=== PATIENT | female | born 1985 | race Caucasian/White ===

== ENCOUNTER 2016-08-24 05:58 | Day surgery (SDC) | payer OTHER ==
[2016-08-22 11:10] LABS: ANION GAP 11.2 (8-16); CALCIUM 8.6 mg/dL (8.5-10.1); CREATININE 0.8 mg/dL (0.6-1.3); POTASSIUM 4.2 mmol/L (3.5-5.1)
[2016-08-22 11:15] LABS: ALBUMIN 3.3 g/dL (3.4-5.0); TOTAL BILIRUBIN 0.1 mg/dL (0.0-1.0); TOTAL PROTEIN, SERUM 7.7 g/dL (6.4-8.2)
[2016-08-22 11:47] LABS: BASOPHILS # (AUTO) 0.3 K/uL (0.00-0.22); BASOPHILS % (AUTO) 4.9 % (0.0-2.0); EOSINOPHILS # (AUTO) 0.1 K/uL (0-0.4); EOSINOPHILS % (AUTO) 1.8 % (0.0-4.0); HEMATOCRIT 37.7 % (36-48); HEMOGLOBIN 12.8 g/dL (12.0-16.0); LYMPHOCYTES % (AUTO) 30.6 % (20.5-51.1); MEAN CORPUSCULAR HEMOGLOBIN 29 pg (27-31); MEAN CORPUSCULAR HGB CONC 34 g/dL (33-37); MEAN CORPUSCULAR VOLUME 86 fL (80-94); MONOCYTES # (AUTO) 0.3 K/uL (0.8-1.0); MONOCYTES % (AUTO) 4.8 % (1.7-9.3); NEUTROPHILS # (AUTO) 3.9 K/uL (1.8-7.7); NEUTROPHILS % (AUTO) 57.9 % (42.2-75.2); PLATELET COUNT (AUTO) 295 K/uL (140-450); RED BLOOD CELL COUNT(AUTO) 4.37 MIL/uL (4.20-5.40); RED CELL DISTRIBUTION WIDTH 13.6 % (11.6-13.7); WHITE BLOOD COUNT (AUTO) 6.6 K/uL (4.8-10.8)
[~2016-08-24] VITALS: Ht 170.2 cm; Wt 82.6 kg
[~2016-08-24 05:58] MED LIST: PREN-234 PO
[2016-08-24] MEDS ORDERED: IBUPROFEN 800 MG TAB PO PRN ×2 (08:50→09:45)
[2016-08-24] MEDS ORDERED: MORPHINE SULFATE 4 MG/ML SYR IM/IVP PRN ×2 (08:50→09:45)
[2016-08-24] MEDS ORDERED: ACETAMINOPHEN/CODEINE 300/30MG 1 TAB PO PRN ×2 (08:50→09:45)
[2016-08-24] MEDS ORDERED: ONDANSETRON 4 MG/2 ML VIAL IVP PRN ×3 (08:50→10:20)
[2016-08-24] MEDS ORDERED: fentaNYL 0.05 MG/ML VIAL ONE (09:55)
[2016-08-24] MEDS ORDERED: MIDAZOLAM 2 MG/2 ML VIAL ONE (09:55)
[2016-08-24] MEDS ORDERED: BUPIVACAINE-MPF/EPI 0.5% 30 ML VIAL INJ ONE (10:03)
[2016-08-24] MEDS: HYDROmorphone 1 MG/ML AMP IVP PRN ×4 (10:50→11:20)
[2016-08-24] MEDS ORDERED: HYDROmorphone PFS 2 MG/ML SYR ONE (11:02)
[2016-08-24] MEDS ORDERED: ONDANSETRON 4 MG/2 ML VIAL ONE (11:07)
== END 2016-08-24 14:10 | disposition home or self-care (01) ==
LOC: MDS 05:58 → MMU 06:04 → MDS 14:10
PROVIDERS: ATTEND Obstetrics & Gynecology
DX: Z30.2 Encounter for sterilization (principal); E11.9 Type 2 diabetes mellitus without complications; I12.9 Hypertensive chronic kidney disease with stage 1 through stage 4 chronic kidney disease, or unspecified chronic kidney disease; E11.22 Type 2 diabetes mellitus with diabetic chronic kidney disease; N18.9 Chronic kidney disease, unspecified; G40.909 Epilepsy, unspecified, not intractable, without status epilepticus; J45.909 Unspecified asthma, uncomplicated; E66.3 Overweight; D64.9 Anemia, unspecified; F17.210 Nicotine dependence, cigarettes, uncomplicated; Z98.890 Other specified postprocedural states; Z64.1 Problems related to multiparity; Z98.51 Tubal ligation status
CPT/HCPCS: 36415; 58600; 80053; 84702; 85025; J0690; J1170; J2250; J2270; J2405; J3010; J3490; J7060; J7120

== ENCOUNTER 2016-12-24 18:37 | Emergency (ER) | payer OTHER ==
[~2016-12-24] VITALS: Ht 170.2 cm; Wt 81.4 kg
[2016-12-24 18:50] VITALS: BP 150/96
--- NOTE | 2016-12-24 19:33 | NUR ---
PT TAKEN TO [facility]
--- NOTE | 2016-12-24 20:49 | NUR ---
Dr. Weir evaluating patient
[2016-12-24] MEDS ORDERED: METOCLOPRAMIDE 10 MG TAB PO ONE (20:50)
[2016-12-24] MEDS ORDERED: IBUPROFEN 800 MG TAB PO ONE (21:15)
[2016-12-24] MEDS ORDERED: ACETAMINOPHEN EXTRA STRENGTH 500 MG TAB PO ONE (21:50)
[2016-12-24 22:30] VITALS: BP 137/88
--- NOTE | 2016-12-24 22:30 | NUR ---
Patient discharged with v/s stable. Written and verbal after care instructions given and explained. Patient alert, oriented and verbalized understanding of instructions. Ambulatory with steady gait. All questions addressed prior to discharge. ID band removed. Patient advised to follow up with PMD. Rx of Imitrex and Reglan given. Patient educated on indication of medication including possible reaction and side effects. Opportunity to ask questions provided and answered.
== END 2016-12-24 22:30 | disposition home or self-care (01) ==
LOC: MED 18:37
DX: G43.909 Migraine, unspecified, not intractable, without status migrainosus (principal); Z79.899 Other long term (current) drug therapy
CPT/HCPCS: 81002; 81025; 99284; J8597